=== PATIENT | female | born 1935 | race Caucasian/White ===

== ENCOUNTER → 2019-04-28 | Outpatient (CLI) | payer OTHER, BC | LOC: FIMAGING 11:20 ==

== ENCOUNTER 2019-05-09 06:29 | Inpatient (IN) | payer OTHER, BC | END 2019-05-10 14:21 | disposition home health service (06) | LOC: F3N 06:29 ==

== ENCOUNTER 2019-05-19 12:02 | Emergency (ER) | payer OTHER, BC | END 2019-05-19 14:12 | disposition home or self-care (01) ==